=== PATIENT | female | born 1980 | race Asian ===

== ENCOUNTER 2019-03-14 16:11 | Emergency (ER) | payer MEDICAID, SELFPAY ==
[2019-03-14 16:15] VITALS: BP 119/79; PULSE 98; RESP 18; TEMP 36.3; O2SAT 98; BMI 20.2
[2019-03-14 17:41] LABS: Absolute Lymphocyte Count 2.43 X10^3/ul (0.83-4.51); Basophil# 0.03 X10^3/uL; Basophil% 0.4 % (0-1); Eosinophil# 0.17 X10^3/uL; Hematocrit 40.7 % (37-47); Hemoglobin 13.6 g/dl (12.0-15.0); Lymphocyte # 2.43 X10^3/ul (4.0); Lymphocyte % 29.2 % (19-41); Mean Corp Hgb Conc 33.4 g/gl (32-36); Mean Corpuscular Volume 89.8 fL (81-99); Mean Platelet Vol. 10.7 fl (6.2-12.0); Monocyte# 0.65 X10^3/uL; Monocyte% 7.8 % (0-10); Neutrophil # 5.03 X10^3/uL (2.7-7.7); Neutrophil % 60.5 % (47-70); Platelet Count 215 K/mm3 (150-450); RBC Distribution Width CV 13.9 % (11.6-14.6); RBC Distribution Width SD 45.8 fl (35.1-43.9); Red Blood Count 4.53 M/mm3 (4.2-5.4); White Blood Count 8.3 K/mm3 (4.4-11.0)
[2019-03-14 17:46] LABS: POSITIVE COUNT NO; POSITIVE DIFFERENTIAL NO; POSITIVE MORPHOLOGY NO
[2019-03-14 17:53] LABS: Anion Gap 7 (5-15); BUN 13 mg/dL (7-18); BUN/Creat Ratio 16.4 RATIO (10-20); Calcium,Total 8.1 mg/dL (8.5-10.1); Chloride 111 mmol/L (98-107); Creatinine, Serum 0.79 mg/dL (0.55-1.02); EST Glomerular Filtration Rate 85 mL/min (>60); Est Glom Filt Rate - Afr Amer 103 mL/min (>60); Estimated Creatinine Clearance 67.99 ml/min; Glucose 118 mg/dL (74-106); Potassium 3.8 mmol/L (3.5-5.1); Sodium Level 140 mmol/L (136-145)
[2019-03-14 17:53] LABS: Bacteria 0 SEEN /hpf (None Seen); Mucous, Urine 0 SEEN /hpf (<or=2+); Red Blood Cells-Urine 0 SEEN /hpf (0-5); White Blood Cells 0 SEEN /hpf (0-5)
[2019-03-14 17:57] LABS: Color, Urine Yellow (Yellow); Glucose, Dipstick Normal (Normal); Ketone-Dipstick Negative (Negative); Leukocyte Esterase-Dipstick Negative /ul (Negative); Nitrite-Dipstick Negative (Negative); Occult Blood-Urine 10 /ul (Negative); Protein-Dipstick Negative (Negative); Specific Gravity, Urine 1.015 (1.002-1.030); Urine Bilirubin Dipstick Negative (Negative); Urine Clarity Clear (Clear); Urine Urobilinogen Normal (Normal)
--- NOTE | 2019-03-14 17:57 | CT_ITS ---
STUDY: CT ABDOMEN AND PELVIS WITH CONTRAST REASON FOR EXAM: Female, 38 years old. Right lower quadrant pain RADIATION DOSAGE (If Supplied By Facility): DLP = ( 236.96 ) mGycm TECHNIQUE: Transaxial images were obtained from the dome of the diaphragm to the symphysis pubis without oral contrast. 100ML ml of Isovue 300 contrast was administered. Sagittal and coronal images were reconstructed. Individualized dose optimization techniques were used for this CT. COMPARISON: None. FINDINGS: The visualized lung bases are clear. The visualized portions of the heart and pericardium are within normal limits. There are no calcified gallstones present. The liver is within normal limits. There are no suspicious hepatic lesions. There is a right hepatic 9 mm cyst. The spleen is normal in size. The pancreas is within normal limits. The adrenal glands are within normal limits. There are no obstructing renal stones. There is no hydronephrosis. There are no focal renal lesions. Normal visualized stomach. There is no bowel obstruction or inflammation. The appendix is normal. Postsurgical changes from tubal ligation present. The aorta is normal in caliber. There is no abdominal or pelvic free air, free fluid, fluid collection or lymphadenopathy. There are no destructive osseous lesions. CT/Abdomen/Pelvis W IV Cont ONLY IMPRESSION: No acute abdominal or pelvic pathology. Normal appendix. Electronically Signed: Corbin Suresh, at 19:15 EDT Tel , Service support ,
--- NOTE | 2019-03-14 18:05 | ED.DCSUM_ITS ---
History of Present Illness Chief Complaint: Abd Pain Informant: Patient Onset: Weeks - 1 Context: Gradual Onset Timing: Continuous, Waxes and wanes Quality: ache/sore Location: RLQ w/ radiation into prox right thigh and a little into back Current Severity: Moderate Maximum Severity: Moderate Worsened by: certain positions Relieved by: nothing Associated Symptoms: none. no n/v/d, urinary sx, vag sx, fevers Narrative: Pain was dull and mild for about the past week but in the last day or 2, pain has gotten significantly worse without migration. Has had tubal ligation in the past. Past Medical History - Allergies and Home Meds Allergies/Adverse Reactions: Allergies penicillin Allergy (Verified 03/14/19 16:15) Swelling Primary Care Physician: Care Physician,No Primary [Primary Care Provider] - Surgical History: herniorrhaphy, - - Bilateral tubal ligation Smoking Status: Current every day smoker Drugs: None Review of Systems General: Denies: Chills, Fever, Sweats Eyes: Denies: Visual changes - bilaterally, Diplopia ENT: Denies: Rhinorrhea, Sore throat Cardiovascular: Denies: Chest pain, Palpitations Respiratory: Denies: Dyspnea, Cough, Dyspnea on exertion Gastrointestinal: Reports: Abdominal pain. Denies: Nausea, Vomiting, Diarrhea, Melena, Hematochezia Genitourinary: Denies: Dysuria, Hematuria, Frequency Musculoskeletal: Reports: Back pain, Extremity Pain. Denies: Swelling Skin: Denies: Rash, Wounds Neurological: Denies: Headache, Weakness, Numbness Physical Exam Vital Signs/Narrative: Vital Signs Temp Pulse Resp BP Pulse Ox 03/14/19 16:15 97.4 F L 98 18 119/79 98 Inital Vital Signs reviewed: Yes General: Well nourished, Well developed, No Acute Distress Head: Normocephalic, Atraumatic Eyes: Perrl, EOMI ENT: Moist mucous membranes, No rhinorrhea Neck: Supple, Nontender Cardiovascular: Regular rate, Regular rhythm, No murmurs Respiratory: No distress, CTA bilaterally, Chest nontender Abdomen: Soft, Nondistended, Normal bowel sounds, Tender - right lower quadrant including McBurney's point and areas distal, Guarding - Voluntary, right lower quadrant. Negative for: Rebound tenderness, Psoas sign, Obturator sign, Rovsig's sign, Morelos's sign Back: Nontender, Normal Inspection. Negative for: CVA tenderness Extremities: Nontender, No edema. Negative for: Calf Tenderness Skin: Normal color, No rash, No Trauma Neurological: Alert, Oriented x3, Cranial nerves II-XII grossly intact, Normal Strength, Normal Sensation Psychological: Normal affect, Normal Mood Diagnostic/Tx/Re-eval Impressions Abdomen/Pelvis CT 03/14/19 17:57 IMPRESSION: No acute abdominal or pelvic pathology. Normal appendix. Electronically Signed: Corbin Suresh, at 19:15 EDT Tel , Service support , 03/14/19 17:57 Abdomen/Pelvis W IV Cont ONLY [CT] Stat Laboratory Results 03/14/19 03/14/19 03/14/19 17:28 17:28 17:28 WBC 8.3 RBC 4.53 Hgb 13.6 Hct 40.7 MCV 89.8 MCH 30.0 MCHC 33.4 RDW 13.9 RDW Differential 45.8 H Plt Count 215 MPV 10.7 Immature Gran % (Auto) 0.100 Neut % (Auto) 60.5 Lymph % (Auto) 29.2 [place] % (Auto) 7.8 Eos % (Auto) 2.0 Baso % (Auto) 0.4 Absolute Neuts (auto) 5.0 Absolute Lymphs (auto) 2.43 Total Counted Not Reportable Sodium 140 Potassium 3.8 Chloride 111 H Carbon Dioxide 22.0 Anion Gap 7 BUN 13 Creatinine 0.79 Estim Creat Clear Calc 67.99 Est GFR (MDRD) Af Amer 103 Est GFR (MDRD) Non-Af 85 BUN/Creatinine Ratio 16.4 Glucose 118 H Calcium 8.1 L Serum , Qual NEGATIVE Urine Color Urine Clarity Urine pH Ur Specific [place] Urine Protein Urine Glucose (UA) Urine Ketones Urine Occult Blood Urine Nitrite Urine Bilirubin Urine Urobilinogen Ur Leukocyte Esterase Urine RBC Urine WBC Ur Squamous Epith Cells Urine Bacteria Urine Mucus 03/14/19 17:48 WBC RBC Hgb Hct MCV MCH MCHC RDW RDW Differential Plt Count MPV Immature Gran % (Auto) Neut % (Auto) Lymph % (Auto) [place] % (Auto) Eos % (Auto) Baso % (Auto) Absolute Neuts (auto) Absolute Lymphs (auto) Total Counted Sodium Potassium Chloride Carbon Dioxide Anion Gap BUN Creatinine Estim Creat Clear Calc Est GFR (MDRD) Af Amer Est GFR (MDRD) Non-Af BUN/Creatinine Ratio Glucose Calcium Serum , Qual Urine Color Yellow Urine Clarity Clear Urine pH 6.0 Ur Specific [place] 1.015 Urine Protein Negative Urine Glucose (UA) Normal Urine Ketones Negative Urine Occult Blood 10 H Urine Nitrite Negative Urine Bilirubin Negative Urine Urobilinogen Normal Ur Leukocyte Esterase Negative Urine RBC 0 SEEN Urine WBC 0 SEEN Ur Squamous Epith Cells 0-5 SEEN Urine Bacteria 0 SEEN Urine Mucus 0 SEEN - Medical Decision Making Patient feeling much better after morphine and Toradol. Her CT shows no evidence of appendicitis, ureterolithiasis, perinephric stranding, or anything else acute. I postulate that this may have been an ovarian cyst-related issue, the fact that the CT did not see anything in this area does not rule out this is a possibility but I do not think she has torsion given the gradual onset over a week. Urine showed trace of blood but is otherwise unremarkable. negative. No leukocytosis. 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 Given Naprosyn prescription. ED Disposition - Plan for ED Patient: Disposition: Home or Assisted Living Diagnosis: Right lower quadrant abdominal pain Instructions: ED Abdominal Pain Unkn Cause Prescriptions: Naproxen [Naprosyn] 500 mg PO BID PRN #20 tablet Referrals: Melanie Mcguire MD [STAFF PHYSICIAN] - 3-5 Days if not improving
[2019-03-14 18:19] LABS: Internal QC Validated? YES +Cl - CLEAR BKGD; Pregnancy, Serum, hCG Quali. NEGATIVE Negative
[2019-03-14 18:22] VITALS: RESP 16
[2019-03-14 18:29] LABS: Squamous Epithelial Cells - UA 0-5 SEEN /hpf (5-10)
[2019-03-14] MEDS: Morphine 4 MG/ML Syringe IV (18:32)
[2019-03-14] MEDS: Ketorolac 30 MG/ML Syringe IV (18:32)
[2019-03-14 20:37] VITALS: BP 104/67; PULSE 75; RESP 16; O2SAT 98
--- NOTE | 2019-03-14 20:39 | ED.RN ---
REVIEWED D/C INSTRUCTIONS, FOLLOW UP CARE, PRESCRIPTIONS, AND S/S THAT WOULD WARRANT A RETURN TO THE ED WITH PT. PT VERBALIZED AN UNDERSTANDING AND DENIES FURTHER QUESTIONS FOR THIS RN. PT SKIN P/W/D, RESP EVEN AND UNLABORED, PT A&O X 3, NO DISTRESS NOTED. PT AMBULATED OUT OF THE ED, GAIT STEADY.
== END 2019-03-14 20:40 | disposition home or self-care (01) ==
PROVIDERS: Emergency Provider Emergency Medicine
DX: R10.31 Right lower quadrant pain (principal); F17.200 Nicotine dependence, unspecified, uncomplicated
CPT/HCPCS: 74177; 80048; 81001; 84703; 85025; 96361; 96374; 96375; 99284; J7030; J7040; Q9967; A4216

== ENCOUNTER → 2021-04-18 | Outpatient (CLI) | payer MEDICAID, SELFPAY | END | disposition home or self-care (01) | LOC: LABSPEC 11:29 | DX: Z03.818 Encounter for observation for suspected exposure to other biological agents ruled out (principal) | CPT/HCPCS: 87635; U0005; U0003 ==

== ENCOUNTER → 2021-09-27 | Outpatient (CLI) | payer MEDICAID, SELFPAY | END | disposition home or self-care (01) | LOC: LABSPEC 11:29 | PROVIDERS: Visit Provider Family Medicine | DX: Z03.818 Encounter for observation for suspected exposure to other biological agents ruled out (principal) | CPT/HCPCS: 87635; U0005; U0003 ==

== ENCOUNTER 2021-09-30 13:05 | Outpatient (RCR) | payer MEDICAID, SELFPAY | END 2021-10-08 23:59 | LOC: LABSPEC 13:05 | PROVIDERS: Visit Provider Family Medicine | DX: U07.1 COVID-19 (principal) | CPT/HCPCS: 87635; U0005; U0003 ==

== ENCOUNTER 2022-04-03 22:59 | Emergency (ER) | payer OTHER, MEDICAID, SELFPAY ==
[2022-04-03 23:00] VITALS: BP 124/72; PULSE 105; RESP 18; TEMP 36.7; O2SAT 100; BMI 20.5
--- NOTE | 2022-04-03 23:20 | EDS_ITS ---
HPI History of Present Illness Chief Complaint: Back Informant: patient Narrative Narrative: Sent here after work for injury evaluation. 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 Pain worse with certain movements. No radicular pain. Normal bowel movements, no difficulty urinating. No medicines taken. She finished her shift. Has had strains in her back previously improved over time. Denies taking any daily medications. Ambulating without any difficulties. Prior similar symptoms: Yes PFSH PFSH Medical History no medical history Allergy/AdvReac Type Severity Reaction Status Date / Time penicillin Allergy Swelling Verified 04/03/22 23:03 Social History Smoking Status: Current every day smoker tobacco type: cigarettes ROS ROS ED Constitutional Constitutional ED: Denies chills, fever(s) or sweats Eyes Eyes: Denies change in vision ENT ENT ED: Denies dysphagia or sore throat Cardiovascular Cardiovascular: Denies chest pain, leg edema, palpitations or racing heartbeat Respiratory/Chest Respiratory/Chest: Denies cough, dyspnea or dyspnea on exertion Gastrointestinal Gastrointestinal: Denies abdominal pain, diarrhea, nausea or vomiting Genitourinary Genitourinary ED: Denies dysuria, hematuria or urinary frequency Musculoskeletal Musculoskeletal: Reports back pain; Denies extremity pain or neck pain Integumentary Denies rash or wounds Neurologic Neurologic: Denies headache(s), paresthesias or weakness EXAM Physical Exam Const Vital Signs: 04/03/22 23:00 Temperature 98.1 F Temperature Source Temporal Pulse Rate 105 H Respiratory Rate 18 Blood Pressure 124/72 H Blood Pressure Mean 89 Pulse Ox 100 Oxygen Delivery Method Room Air Positive well nourished and well developed General Appearance ED: well developed and NAD HEENT Reports moist mucous membranes normocephalic and atraumatic Eyes PERRL, EOMs intact bilaterally and conjunctivae normal General Eye ED: Yes normal appearance of both eyes Neck no lymphadenopathy and supple General: Negative for tenderness Chest Wall Chest: Negative for tenderness Resp normal respiratory effort and normal air movement Effort and Inspection: symmetric chest movement; Negative for respiratory distress Cardio regular rate, regular rhythm and no murmurs Peripheral Pulses: pulses 2+ throughout GI normal to inspection, nondistended, normoactive bowel sounds and non-tender Palpation: Negative for guarding or rebound tenderness present Back/Spine no CVA tenderness Back/Spine Narrative: No midline tenderness there is mild tenderness to right p aralumbar, straight leg test negative bilaterally 2+ patellar reflex. Patient able to ambulate for been extension twisting without any significant difficulties. Extremity normal to inspection General Extremety ED: Negative for edema or tenderness General Extremity: Negative for edema Neuro oriented x3 and no sensory deficits noted Sensorium / Orientation: awake and alert Skin no rashes or lesions noted and no wounds MDM MDM MDM Narrative Medical decision making narrative: Patient history exam concerns for a lumbar strain. Mild symptoms currently. No images are indicated currently. Discussed [id number] Tylenol Motrin as needed every 6 hours. Work restrictions were given along with follow-up with occupational health. All questions were answered. Discharge Plan Triage Chief Complaint: Back ED Provider: Campbell Naqvi Dx/Rx/DC Orders Clinical Impression: Acute lumbar myofascial strain, Back pain Instructions: ED Back Sprain/Strain Primary Care Provider: Care Physician,No Primary Referrals: Care Physician,No Primary [Primary Care Provider] - Activity Restrictions/Additional Instructions: Use up to 1 g of Tylenol or 400 mg ibuprofen every 6 hours as needed for pain. Follow-up with occupational health. Disposition Disposition: Home, Self Care
== END 2022-04-03 23:34 | disposition home or self-care (01) ==
PROVIDERS: Emergency Provider Emergency Medicine; Visit Provider Emergency Medicine
DX: S39.012A Strain of muscle, fascia and tendon of lower back, initial encounter (principal); F17.210 Nicotine dependence, cigarettes, uncomplicated; X50.0XXA Overexertion from strenuous movement or load, initial encounter; Y93.F2 Activity, caregiving, lifting; Y99.0 Civilian activity done for income or pay
CPT/HCPCS: 99282

== ENCOUNTER → 2023-06-29 | Outpatient (CLI) | payer OTHER, MEDICAID, SELFPAY ==
--- NOTE | 2023-06-29 17:10 | RAD_ITS ---
INDICATION: injury EXAMINATION/TECHNIQUE: X-RAY - RIGHT HAND XR Fingers Min 2 Views COMPARISON: None. FINDINGS: No acute fracture or malalignment. No blastic or lytic lesions. No degenerative changes are seen. The soft tissues are unremarkable. RAD/Finger(s) Min 2 Views IMPRESSION: No acute radiographic abnormalities. Electronically Signed: Johnny Hutton MD at 18:12 EDT ,
== END | disposition home or self-care (01) ==
PROVIDERS: Referring Provider Physician Assistant; Visit Provider Physician Assistant
DX: S69.91XA Unspecified injury of right wrist, hand and finger(s), initial encounter (principal); X58.XXXA Exposure to other specified factors, initial encounter
CPT/HCPCS: 73140